=== PATIENT | male | born 1950 | race Caucasian/White ===

== ENCOUNTER 2019-09-17 16:02 | Emergency (ER) | payer BC, MEDICARE ==
[~2019-09-17] VITALS: Ht 177.8 cm; Wt 108.9 kg
[2019-09-17 16:57] VITALS: BP 127/81
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
== END 2019-09-17 17:43 | disposition home or self-care (01) ==
LOC: ER 16:02
DX: M54.2 Cervicalgia (principal); M54.5 Low back pain; V23.4XXA Motorcycle driver injured in collision with car, pick-up truck or van in traffic accident, initial encounter; Y92.488 Other paved roadways as the place of occurrence of the external cause; I10 Essential (primary) hypertension
CPT/HCPCS: 70450; 72125; 72131; 99283